=== PATIENT | male | born 1950 | race Caucasian/White ===

== ENCOUNTER 2021-04-29 12:14 | Outpatient (CLI) | payer MEDICARE, SELFPAY ==
--- NOTE | ~2021-04-29 | CT_ITS ---
EXAMINATION: CT lung screening DATE: 04/29/2021 12:36 INDICATION: hx tobacco dependence, still smokes, COPD, R ant chest pain TECHNIQUE: Computed tomography (CT) of the chest was performed without intravenous contrast. Addition al 3D reconstructions utilizing coronal maximum intensity projection (MIP) were performed. Automated exposure control and iterative reconstruction technique were employed. The dose-length product was 16 7.84 mGy-cm. COMPARISON: None FINDINGS: Mild to moderate emphysema. There are few irregular nodules/clusters of nodules at the anteromedial r ight upper lobe. The largest measures 2.0 x 1.8 cm with a second 1.6 x 1.2 cm in the most caudal melonie uring 8 x 6 mm the there is a larger 6.1 x 2.7 x 4.5 similar pleural-based mass along the anterior ri ght upper lobe with no intervening fat plane between the mass and the more superficial chest wall mus culature which suggests possible chest wall invasion. There are smaller more subtle thin pleural plaq ues along the right hemidiaphragm and posteriorly at the periphery of the right lower lobe. Mild atel ectasis at the medial lingula. No pulmonary edema, pleural effusion or pneumothorax. Heart size is normal. Atherosclerotic coronary artery calcific location. Small amount of pericardial calcification. No pericardial effusion. 3.6 x 3.3 x 3.7 cm mass with lobular margins in the anterior mediastinum. There are couple additional soft tissue nodules in the right paracardial fat, the larger measuring 2.2 x 1.3 cm. Thoracic aorta is normal in caliber. Cyst at the upper poles of both kidneys measuring up to 1.8 cm. Severe lower cervical and mild thoracic spondylosis. Chronic mild central en dplate compression fracture at T6 and chronic appearing minimal to mild anterior wedging at a few mid to lower thoracic vertebral bodies. IMPRESSION: 1. Lung-RADS category 4X: Very suspicious, >15% chance of malignancy. Recommend ultrasound-guided bio psy of the 6.1 x 2.7 x 4.5 cm pleural-based mass which appears to invade the chest wall. 2. Additional 2.7 cm anterior mediastinal mass which could represent metastatic disease or primary me diastinal malignancy such as invasive thymoma which could also account for the pleural-based disease in the right hemithorax or lymphoma. 3. Mild to moderate emphysema. Reviewed, dictated and finalized at location A. [facility] IMPRESSION: 1. Lung-RADS category 4X: Very suspicious, >15% chance of malignancy. Recommend ultrasound-guided biopsy of the 6.1 x 2.7 x 4.5 cm pleural-based mass which ap pears to invade the chest wall. 2. Additional 2.7 cm anterior mediastinal mass which could represent metastatic disease or primary mediastinal malignancy such as invasive thymoma which could also account for the pleural-based disease in the right hemithorax or lymphoma . 3. Mild to moderate emphysema.
== END 2021-04-29 12:15 | disposition home or self-care (01) ==
LOC: CHSIMG 12:18
PROVIDERS: PCP Internal Medicine; Visit Provider Internal Medicine
DX: Z12.2 Encounter for screening for malignant neoplasm of respiratory organs (principal); Z87.891 Personal history of nicotine dependence
CPT/HCPCS: 71271